=== PATIENT | male | born 1985 | race Caucasian/White ===

== ENCOUNTER 2024-12-02 07:53 | Emergency (ER) | payer OTHER, SELFPAY ==
--- NOTE | ~2024-12-02 | CT_ITS ---
EXAMINATION: CTA chest abdomen pelvis DATE: 12/02/2024 08:44 INDICATION: Severe left lower quadrant, back and chest pain TECHNIQUE: Computed tomographic angiography (CTA) of the chest, abdomen, and pelvis was performed wit hout and with 100 mL Omnipaque-350 intravenous contrast. Volume-rendered 3D-reconstructions of the ao rta and large arteries were constructed by the technologist on a separate workstation. Automated expo sure control and iterative reconstruction technique were employed. The dose-length product was 787.47 mGy-cm. COMPARISON: None FINDINGS: Chest: Lungs are clear with no pneumonia, suspicious pulmonary nodules, pulmonary edema, pleural effusion or pneumothorax. Heart size is normal. No pericardial effusion. Thoracic aorta is normal in caliber wit h no dissection. No pathologically enlarged thoracic lymphadenopathy. Moderate bilateral gynecomastia . Mild thoracic spondylosis with chronic appearing mild likely physiologic anterior wedging at T10-T1 2. Abdomen and pelvis: 5 mm axial enhancing hepatic lesion most likely a flash filling hemangioma. Gallbladder, spleen, panc reas, bilateral adrenal glands and kidneys are normal. No abnormal bowel wall thickening or obstructi on. The appendix is not visualized. No pericecal inflammatory change to suggest acute appendicitis. B ladder is normal. No free intraperitoneal gas or fluid. No pathologically enlarged abdominal or pelvi c lymphadenopathy. Abdominal aorta is normal in caliber with no hemodynamically significant stenosis or dissection. L4 spondylolysis with bilateral pars interarticularis defects and 10 mm anterolisthesi s on L5. Severe disc height loss with Modic type III sclerotic endplate changes at L4-L5. There is ho wever horizontal sclerosis extending across the right anterior side of the L4 vertebral body with mil d vertebral body height loss and across anterior half of the L5 vertebral body also with minimal ante rior vertebral body height loss and sharply buckled anterior cortex consistent with likely relatively recent compression fractures. IMPRESSION: 1. Likely acute to subacute compression fractures at L4 and L5 where there is also chronic L5 spondyl olysis with 10 mm anterolisthesis and severe spondylosis at L4-L5. 2. No acute cardiopulmonary disease or other acute intra-abdominal/pelvic process. Reviewed, dictated and finalized at location A. IMPRESSION: 1. 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 2. No acute cardiopulmonary disease or other acute intra-abdominal/pelvic proce ss.
[2024-12-02 08:05] VITALS: BP 165/109; PULSE 57; RESP 18; TEMP 36.6; O2SAT 100
[2024-12-02 08:17] LABS: Hematocrit 45.6 % (42.0-52.0); Hemoglobin 15.3 g/dL (14.0-18.0); Immature Granulocyte Percent A 0.5 % (0-0.5); Lymphocytes Absolute Auto 2.69 K/mm3 (0.9-3.2); Mean Corpuscular HGB Conc 33.6 g/dl (32-36); Mean Corpuscular Hemoglobin 32.1 pg (26-34); Mean Corpuscular Volume 95.8 fl (80-100); Nucleated Red Blood Cells Absolute Auto 0.000 K/mm3 (0.0-0.012); Nucleated Red Blood Cells Perc 0.0 % (0.0-0.2); Platelet Count Result 284 k/mm3 (150-375); Red Blood Count 4.76 M/mm3 (4.6-6.20); White Blood Count 15.2 K/mm3 (4.5-10.0)
[2024-12-02 08:29] LABS: Alanine Aminotransferase 23 U/L (6-50); Albumin Level 4.5 g/dL (3.5-5.1); Alkaline Phosphatase 67 U/L (38-126); Anion Gap 8 mmol/L (4-12); Aspartate Amino Transferase 29 U/L (17-59); Bilirubin,Total 0.6 mg/dL (0.2-1.3); Blood Urea Nitrogen 9 mg/dL (9-20); Calcium 9.8 mg/dL (8.4-10.2); Carbon Dioxide 26 mmol/L (22-30); Chloride 102 mmol/L (98-107); Estimated CRCL calculation 108 ml/min; Estimated Glomerular Filt Rate > 60; Glucose 109 mg/dL (65-110); Lipase 48 U/L (23-300); Potassium 3.8 mmol/L (3.4-5.0); Sodium 136 mmol/L (137-145); Total Protein 7.9 g/dL (6.3-8.2)
[2024-12-02 08:34] LABS: Add Urine Microscopic? NO; Appearance Urine Clear (Clear); Glucose Urine UA Negative (Negative); Leukocyte Esterase Ur Negative LEU/UL (Negative); Nitrate Urine Negative (Negative); Specific Grav Ur 1.005 (1.001-1.035)
[2024-12-02] MEDS: ONDANSETRON INJ 4 MG/2 ML VIAL IV PUSH (09:08)
[2024-12-02] MEDS: MORPHINE SULFATE (*CRX) 4 MG/ML INJ IV PUSH (09:08)
[2024-12-02] MEDS: PANTOPRAZOLE SODIUM IV 40 MG VIAL IV PUSH (09:08)
[2024-12-02] MEDS: KETOROLAC 15 MG/ML VIAL (*BKC) IV PUSH (10:29)
[2024-12-02] MEDS: MORPHINE SULFATE (*CRX) 2 MG/ML INJ IV PUSH (10:30)
[2024-12-02] MEDS: DICYCLOMINE HCL 10 MG CAPSULE 20 MG PO (10:31)
[2024-12-02 11:15] VITALS: BP 140/91; PULSE 70; RESP 16; O2SAT 99
--- NOTE | 2024-12-02 13:22 | ED_ITS ---
HPI - Abdominal Pain General Chief Complaint: Abdominal Pain Stated Complaint: abd pain Time Seen by Provider: 12/02/24 07:57 History of Present Illness HPI narrative: Last night patient started having severe pain to his left lower abdomen, he took a lot of Tums which usually helps but not in this case. Still having severe pain this morning when he tried to go to work. No nausea or vomiting, no dysuria. Related Data Allergies Allergy/AdvReac Type Severity Reaction Status Date / Time No Known Allergies Allergy Verified 12/02/24 08:08 Review of Systems 2 Review of Systems: All systems reviewed & are unremarkable except as noted in HPI and below Exam 2 Narrative: EXAMINATION OF ORGAN SYSTEMS/BODY AREAS: Constitutional: Vital signs per nursing GENERAL: Writhing in the bed HEAD: Normal with no signs of head trauma. EYES: EOMI, conjunctiva normal ENT: Hearing grossly intact LUNGS: Nonlabored breathing. HEART: [Regular rate and rhythm] ABD: [Soft], [nontender to palpation] EXT: Normal range of motion SKIN: [No rashes or lesions.] NEURO: [Alert and oriented x 3. No gross focal sensory or strength deficits.] PSYCH: Normal affect Course Vital Signs Vital signs: Vital Signs Temperature 97.9 F 12/02/24 08:05 Pulse Rate 57 L 12/02/24 08:05 Respiratory Rate 18 12/02/24 08:05 Blood Pressure 165/109 H 12/02/24 08:05 Pulse Oximetry 100 12/02/24 08:05 Oxygen Delivery Room Air 12/02/24 08:05 Temperature 97.9 F 12/02/24 08:05 Pulse Rate 70 12/02/24 11:15 Respiratory Rate 16 12/02/24 11:15 Blood Pressure 140/91 H 12/02/24 11:15 Pulse Oximetry 99 12/02/24 11:15 Oxygen Delivery Room Air 12/02/24 08:05 MDM - Abdominal Pain MDM Narrative Medical decision making narrative: Electronic medical record was reviewed. Patient presented to the ED with complaint of [abdominal pain left lower quadrant]. Vitals [were within acceptable limits]. Physical exam revealed extremely uncomfortable appearing patient, abdomen soft without significant tenderness. Based on the patient's history and physical exam, my differential includes but is not limited to [gastritis, gastroenteritis, diverticulitis, renal colic, appendicitis, dissection]. [IV access was established by nursing staff. Patient was given zofran, Protonix, morphine]. CBC, BMP, lipase, LFTs, bilirubin and alk phos were obtained. Labs were pertinent for elevated white count. [Decision was made to obtain a CT-aorta to evaluate for acute abdominal process. CT-abdomen per radiology interpretation is unremarkable for acute intra-abdominal process, he does have acute/subacute compression fractures.] On reevaluation, the patient states that they are feeling much better. There were no witnessed episodes of vomiting in the emergency department. They are not complaining of any new abdominal pain. Repeat examination did not show any significant guarding or rebound. No new tenderness. At this time I do not feel there is any further emergent treatment to be provided. The patient was given strict return precautions, if they are to develop any worsening abdominal pain, vomiting, or blood in the vomit they are to return to the emergency department immediately. Patient verbally acknowledges understanding these directions. [The patient was informed of the above diagnostic test findings.] He has been fitted with back brace here. They will be discharged home [with prescriptions]. They were advised to follow-up with spine surgery and GI in 2 days. The patient feels that this is appropriate medical decision making and verbalizes an understanding of the discharge instructions. Lab Data 12/02/24 08:11 12/02/24 08:11 Labs: Lab Results 12/02/24 12/02/24 Range/Units 08:11 08:27 WBC 15.2 H (4.5-10.0) K/mm3 RBC 4.76 (4.6-6.20) M/mm3 Hgb 15.3 (14.0-18.0) g/dL Hct 45.6 (42.0-52.0) % MCV 95.8 (80-100) fl MCH 32.1 (26-34) pg MCHC 33.6 (32-36) g/dl RDW 13.1 (11.5-14.5) % Plt Count 284 (150-375) k/mm3 MPV 10.4 (7.4-10.4) fl Immature Gran % (Auto) 0.5 (0-0.5) % Neut % (Auto) 74.0 H (45.5-73.1) % Lymph % (Auto) 17.7 L (18.3-44.2) % Cowley % (Auto) 5.8 (2.6-8.5) % Eos % (Auto) 1.6 (0-4.4) % Baso % (Auto) 0.4 (0.2-1.2) % Lymph # (Auto) 2.69 (0.9-3.2) K/mm3 Cowley # (Auto) 0.9 H (0.1-0.6) K/mm3 Eos # (Auto) 0.2 (0-0.3) K/mm3 Baso # (Auto) 0.1 (0.0-0.1) K/mm3 Abs Immat Gran (auto) 0.07 H (0.00-0.031) K/mm3 Absolute Neuts (auto) 11.3 H (1.3-6.7) K/mm3 Absolute Nucleated RBC 0.000 (0.0-0.012) K/mm3 Nucleated RBC % 0.0 (0.0-0.2) % Sodium 136 L (137-145) mmol/L Potassium 3.8 (3.4-5.0) mmol/L Chloride 102 (98-107) mmol/L Carbon Dioxide 26 (22-30) mmol/L Anion Gap 8 (4-12) mmol/L BUN 9 (9-20) mg/dL Creatinine 0.81 (0.7-1.3) mg/dL Estim Creat Clear Calc 108 ml/min Estimated GFR > 60 (59 - ) Glucose 109 (65-110) mg/dL Calcium 9.8 (8.4-10.2) mg/dL Total Bilirubin 0.6 (0.2-1.3) mg/dL AST 29 (17-59) U/L ALT 23 (6-50) U/L Alkaline Phosphatase 67 (38-126) U/L Total Protein 7.9 (6.3-8.2) g/dL Albumin 4.5 (3.5-5.1) g/dL Lipase 48 (23-300) U/L Urine Color Yellow (Yellow) Urine Appearance Clear (Clear) Urine pH 8.5 (5.0-9.0) Ur Specific [place] 1.005 (1.001-1.035) Urine Protein Negative (Negative) mg/dL Urine Glucose (UA) Negative (Negative) mg/dL Urine Ketones Negative (Negative) mg/dL Ur Blood (Man) Negative (Negative) Urine Nitrate Negative (Negative) Urine Bilirubin Negative (Negative) Urine Urobilinogen 0.2 (<2.0) mg/dL Leukocyte Esterase Rfl Negative (Negative) MEGHAN/UL Imaging Data Radiologist's impression: ITS Impressions Chest/Abdomen/Pelvis CTA 12/02/24 09:10 IMPRESSION: 1. 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 2. No acute cardiopulmonary disease or other acute intra-abdominal/pelvic process. Discharge Plan Discharge Clinical Impression: Left sided abdominal pain Patient Disposition: Home Condition: Stable Instructions: Antibiotic Form, Vertebral Compression Fracture (ED), Abdominal Pain (ED) Additional Instructions: Please try taking the medications as prescribed. If your symptoms return or worsen you can always return to the emergency room. Please follow-up with a salvage supervisor and spine surgeon. Patient Language: Emirati Prescriptions: New famotidine 20 mg tablet 20 mg PO DAILY Qty: 30 0RF dicyclomine 20 mg tablet 20 mg PO TID PRN (Reason: abdominal pain) Qty: 30 0RF ondansetron 4 mg tablet,disintegrating 4 mg PO Q8H PRN (Reason: nausea and vomiting) Qty: 10 0RF Follow-up/Referrals: Chery Woods MD [Physician] - 2 Days PHYSICIAN,CLIENT OPERATIONS MANAGER [Primary Care Provider] - Jerrell Mckay MD [Physician] - 2 Days
== END 2024-12-02 11:15 | disposition home or self-care (01) ==
PROVIDERS: Emergency Provider Emergency Medicine
DX: R10.32 Left lower quadrant pain (principal); R00.1 Bradycardia, unspecified; I44.0 Atrioventricular block, first degree; R94.31 Abnormal electrocardiogram [ECG] [EKG]
CPT/HCPCS: 36415; 71046; 71275; 74174; 80053; 81003; 83690; 84484; 85025; 85610; 85730; 93005; 96374; 96375; 96376; 99284; A9270; J1885; J2270; J2405; J2470; Q9967

== ENCOUNTER 2024-12-02 16:27 | Emergency (ER) | payer OTHER, SELFPAY ==
--- NOTE | ~2024-12-02 | XR_ITS ---
EXAMINATION: XR chest 2V DATE: 12/02/2024 17:49 INDICATION: Chest pain TECHNIQUE: frontal and lateral views of the chest were obtained. COMPARISON: Chest radiograph dated 07/27/[address] dated 12/02/2024 FINDINGS: The lungs are clear with no focal airspace opacities, pulmonary edema, pleural effusion or pneumothor ax. The cardiomediastinal silhouette is normal. Mild thoracic spondylosis. IMPRESSION: 1. No acute cardiopulmonary disease. Reviewed, dictated and finalized at location A.
--- NOTE | 2024-12-02 16:29 | ECG_ITS ---
Test Date: 2024-12-02 16:35:59 Measurements Intervals Pearl Rate: 55 P: 31 WY: 210 QRS: -25 QRSD: 113 T: 11 QT: 380 QTc: 366 Interpretive Statements SINUS BRADYCARDIA WITH FIRST DEGREE AV BLOCK POSSIBLE RIGHT VENTRICULAR CONDUCTION DELAY [RSR (QR) IN V1/V2] SEPTAL MYOCARDIAL INFARCTION , PROBABLY OLD [40+ ms Q WAVE IN V1/V2] No previous ECG available for comparison Electronically Signed On 12-03-2024 12:35:56 CDT by Syd Oswald M.D.
[2024-12-02 16:30] VITALS: BP 164/99; PULSE 60; RESP 16; O2SAT 100
[2024-12-02 16:53] LABS: Hematocrit 44.5 % (42.0-52.0); Hemoglobin 15.2 g/dL (14.0-18.0); Immature Granulocyte Percent A 0.5 % (0-0.5); Lymphocytes Absolute Auto 2.50 K/mm3 (0.9-3.2); Mean Corpuscular HGB Conc 34.2 g/dl (32-36); Mean Corpuscular Hemoglobin 32.2 pg (26-34); Mean Corpuscular Volume 94.3 fl (80-100); Nucleated Red Blood Cells Absolute Auto 0.000 K/mm3 (0.0-0.012); Nucleated Red Blood Cells Perc 0.0 % (0.0-0.2); Platelet Count Result 291 k/mm3 (150-375); Red Blood Count 4.72 M/mm3 (4.6-6.20); White Blood Count 14.7 K/mm3 (4.5-10.0)
[2024-12-02 17:11] LABS: INR 1.0; Prothrombin Time 13.3 Seconds (11.1-14.7)
[2024-12-02 17:12] LABS: Partial Thromboplastin Time 26.2 Seconds (22.3-36.8)
[2024-12-02 17:17] LABS: Alanine Aminotransferase 24 U/L (6-50); Albumin Level 4.6 g/dL (3.5-5.1); Alkaline Phosphatase 67 U/L (38-126); Anion Gap 9 mmol/L (4-12); Aspartate Amino Transferase 33 U/L (17-59); Bilirubin,Total 0.8 mg/dL (0.2-1.3); Blood Urea Nitrogen 9 mg/dL (9-20); Calcium 9.7 mg/dL (8.4-10.2); Carbon Dioxide 25 mmol/L (22-30); Chloride 102 mmol/L (98-107); Estimated CRCL calculation 95 ml/min; Estimated Glomerular Filt Rate > 60; Glucose 100 mg/dL (65-110); Lipase 30 U/L (23-300); Potassium 3.6 mmol/L (3.4-5.0); Sodium 136 mmol/L (137-145); Total Protein 8.0 g/dL (6.3-8.2)
[2024-12-02 17:24] LABS: Troponin I < 0.012 ng/mL (0.000-0.034)
--- NOTE | 2024-12-02 17:39 | ED_ITS ---
HPI - Abdominal Pain General Chief Complaint: Abdominal Pain Stated Complaint: abdominal pain Time Seen by Provider: 12/02/24 17:22 History of Present Illness HPI narrative: 39-year-old male presents to emergency department for left lower quadrant abdominal pain that started last night. Patient presented to our ED this morning for the same complaint. He had lab work and a CTA chest, abdomen and pelvis performed which showed no acute cardiopulmonary disease or acute intra- abdominal pelvic process. Incidentally they found likely acute to subacute compression fractures at L4 and L5 where there is also chronic L5 spondylosis with 10 mm of anterolisthesis and severe spondylosis at L4-L5. Patient states he received morphine in the emergency department with improvement in his pain. Patient was discharged home with prescriptions for Pepcid, dicyclomine and Zofran which she reportedly took without improvement. Patient presents back to the ED because he states his pain has returned. He states it is in the left lower quadrant and describes it as a cramping sensation. He denies any aggravating or alleviating factors. He also states he had an episode of nausea and vomiting in the middle of the night but has not had any vomiting since. He denies testicular or scrotal pain. He reported chest pain with inspiration to the triage nurse, however when asked to elaborate on this he points to his epigastrium. He denies any chest pain, fever, melena or hematochezia, dysuria or hematuria. Patient's last bowel movement was yesterday and reportedly normal. He does state that he normally has 3 bowel movements a day and has not had a bowel movement today. He reports social alcohol use and occasional marijuana use. Related Data Allergies Allergy/AdvReac Type Severity Reaction Status Date / Time No Known Allergies Allergy Verified 12/02/24 08:08 Review of Systems 2 Review of Systems: All systems reviewed & are unremarkable except as noted in HPI and below Exam 2 Narrative: GENERAL: Appears uncomfortable HEAD: Normocephalic, atraumatic. EYES: EOMI. ENT: Nares clear, no rhinorrhea or epistaxis. Mucous membranes moist. NECK: Supple. CHEST: Clear to auscultation. No respiratory distress. HEART: Regular rate and rhythm. No murmur heard. Normal peripheral pulses. ABDOMEN: Normoactive bowel sounds. Abdomen soft with tenderness to the left lower quadrant and epigastrium. No rebound or rigidity. No CVA tenderness EXTREMITIES: Normal range of motion. No edema. SKIN: Warm, dry, no rash. NEURO: No focal deficits. Alert and oriented x3 Course Vital Signs Vital signs: Vital Signs Pulse Rate 60 12/02/24 16:30 Respiratory Rate 16 12/02/24 16:30 Blood Pressure 164/99 H 12/02/24 16:30 Pulse Oximetry 100 12/02/24 16:30 Oxygen Delivery Room Air 12/02/24 16:30 Pulse Rate 60 12/02/24 16:30 Respiratory Rate 16 12/02/24 16:30 Blood Pressure 164/99 H 12/02/24 16:30 Pulse Oximetry 100 12/02/24 16:30 Oxygen Delivery Room Air 12/02/24 16:30 MDM - Abdominal Pain MDM Narrative Medical decision making narrative: 39-year-old male presents emergency department for the 2nd time today for left lower quadrant abdominal pain since last night. Vitals with the lower pressure. Patient appears uncomfortable on exam. Exam is notable for the above. Repeat lab work shows leukocytosis of 14.7, it was 15.2 earlier today. Chemistries are unremarkable. Lipase is normal. Urinalysis reviewed from this morning was unremarkable. EKG shows sinus bradycardia with first-degree AV block, normal QRS duration, normal QTC, no ST elevations or depressions. Troponin is undetectable. Chest x-ray shows no acute cardiopulmonary disease. CTA from this morning reviewed. Patient does have a [id number] amount of stool, did consider constipation as possible source of pain. Will trial GoLYTELY and GI cocktail. Also considered ischemic colitis and will obtain lactic, although CTA does not reveal evidence of ischemic colitis. Possible kidney stone however no significant hydroureteronephrosis noted on CTA and no definitive stone is seen in conjunction with a clear urine makes this less likely. Considered referred pain from a testicular torsion however patient denies any scrotal or testicular pain. Orders placed for IM Valium and Toradol for pain control. Patient eloped out of the department prior to re-evaluation, pain management and further workup. Lab Data 12/02/24 16:44 12/02/24 16:44 Labs: Lab Results 12/02/24 Range/Units 16:44 WBC 14.7 H (4.5-10.0) K/mm3 RBC 4.72 (4.6-6.20) M/mm3 Hgb 15.2 (14.0-18.0) g/dL Hct 44.5 (42.0-52.0) % MCV 94.3 (80-100) fl MCH 32.2 (26-34) pg MCHC 34.2 (32-36) g/dl RDW 13.1 (11.5-14.5) % Plt Count 291 (150-375) k/mm3 MPV 10.5 H (7.4-10.4) fl Immature Gran % (Auto) 0.5 (0-0.5) % Neut % (Auto) 73.8 H (45.5-73.1) % Lymph % (Auto) 17.0 L (18.3-44.2) % Randall % (Auto) 6.8 (2.6-8.5) % Eos % (Auto) 1.6 (0-4.4) % Baso % (Auto) 0.3 (0.2-1.2) % Lymph # (Auto) 2.50 (0.9-3.2) K/mm3 Randall # (Auto) 1.0 H (0.1-0.6) K/mm3 Eos # (Auto) 0.2 (0-0.3) K/mm3 Baso # (Auto) 0.1 (0.0-0.1) K/mm3 Abs Immat Gran (auto) 0.07 H (0.00-0.031) K/mm3 Absolute Neuts (auto) 10.9 H (1.3-6.7) K/mm3 Absolute Nucleated RBC 0.000 (0.0-0.012) K/mm3 Nucleated RBC % 0.0 (0.0-0.2) % PT 13.3 (11.1-14.7) Seconds INR 1.0 APTT 26.2 (22.3-36.8) Seconds Sodium 136 L (137-145) mmol/L Potassium 3.6 (3.4-5.0) mmol/L Chloride 102 (98-107) mmol/L Carbon Dioxide 25 (22-30) mmol/L Anion Gap 9 (4-12) mmol/L BUN 9 (9-20) mg/dL Creatinine 0.93 (0.7-1.3) mg/dL Estim Creat Clear Calc 95 ml/min Estimated GFR > 60 (59 - ) Glucose 100 (65-110) mg/dL Calcium 9.7 (8.4-10.2) mg/dL Total Bilirubin 0.8 (0.2-1.3) mg/dL AST 33 (17-59) U/L ALT 24 (6-50) U/L Alkaline Phosphatase 67 (38-126) U/L Troponin I < 0.012 (0.000-0.034) ng/mL Total Protein 8.0 (6.3-8.2) g/dL Albumin 4.6 (3.5-5.1) g/dL Lipase 30 (23-300) U/L Imaging Data Radiologist's impression: ITS Impressions Chest X-Ray 12/02/24 18:03 IMPRESSION: 1. No acute cardiopulmonary disease. Discharge Plan Discharge Clinical Impression: Abdominal pain, acute, left lower quadrant Patient Disposition: Elopement After Seen by Prov Instructions: Antibiotic Form Patient Language: Maltese Prescriptions: No Action famotidine 20 mg tablet 20 mg PO DAILY Qty: 30 0RF dicyclomine 20 mg tablet 20 mg PO TID PRN (Reason: abdominal pain) Qty: 30 0RF ondansetron 4 mg tablet,disintegrating 4 mg PO Q8H PRN (Reason: nausea and vomiting) Qty: 10 0RF Follow-up/Referrals: PHYSICIAN,ADAPTED PHYSICAL EDUCATION SPECIALIST [Primary Care Provider] -
[2024-12-02] MEDS: BELLADONNA ALK/PHENOB ELIX 10 ML, MAG HYDROX/ALUMINUM HYD/SIMETH 30 ML, LIDOCAINE 2% VI... PO (17:54)
--- NOTE | 2024-12-02 18:52 | PC.NURSE ---
Patient was requesting pain medications. This RN spoke with [facility]ling and was told she is not prescribing narcotics for the constipation. patient and family got upset and walked out of department saying This is the hospital that killed my dad, I should have known better than to come here. This RN apologized to patient. patient ambulated out of department prior to signing discharge or AMA forms. Patient in on distress and ambulated out with steady gate
== END 2024-12-02 18:55 | disposition left against medical advice (07) ==
LOC: ANHED 18:05
PROVIDERS: Emergency Medicine; Emergency Provider Physician Assistant
DX: R10.32 Left lower quadrant pain (principal); R00.1 Bradycardia, unspecified; R94.31 Abnormal electrocardiogram [ECG] [EKG]; I44.0 Atrioventricular block, first degree
CPT/HCPCS: 36415; 71046; 80053; 83690; 84484; 85025; 85610; 85730; 93005; 99284; A9270